=== PATIENT | male | born 1995 ===

== ENCOUNTER 2018-09-05 18:30 | Emergency (ER) | payer SELFPAY ==
[2018-09-05 18:53] VITALS: BMI 21.9
[2018-09-05 18:54] VITALS: BP 125/72; PULSE 72; RESP 18; TEMP 98.6; O2SAT 99
[2018-09-05] MEDS ORDERED: Hydrocortisone 2.5% Rectal Cream(30 gm) PR STA (19:08)
--- NOTE | 2018-09-05 19:12 | ED PDOC ---
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 States pain started after straining during a bowel movement. Notes intermittent history of constipation. Describes pain as burning during bowel movement. Denies bleeding, abdominal pain, fever, chills, discharge, any other complaint. Past Medical History - Provider Review Nursing Documentation Reviewed: Yes - Pulmonary Hx Asthma: Yes - Psychiatric Hx Substance Use: No Family/Social History - Physician Review Nursing Documentation Reviewed: Yes Family/Social History: Unknown Family HX Smoking Status: Never Smoked Hx Alcohol Use: Yes Frequency of alcohol use: Socially Hx Substance Use: No Allergies/Home Meds Allergies/Adverse Reactions: Allergies No Known Allergies Allergy (Verified 09/05/18 18:52) Review of Systems - Physician Review All systems were reviewed & negative as marked: Yes - Review of Systems Constitutional: Normal Eyes: Normal ENT: Normal Respiratory: Normal Cardiovascular: Normal Gastrointestinal: Other (Hemorrhoid) Genitourinary Male: Normal Musculoskeletal: Normal Skin: Normal Neurological: Normal Endocrine: Normal Hemo/Lymphatic: Normal Psychiatric: Normal Physical Exam Vital Signs Reviewed: Yes Vital Signs Temp Pulse Resp BP Pulse Ox 09/05/18 18:53 98.6 F 72 18 125/72 99 Temperature: Afebrile Blood Pressure: Normal Pulse: Regular Respiratory Rate: Normal Appearance: Positive for: Well-Appearing, Non-Toxic, Comfortable Pain Distress: None Mental Status: Positive for: Alert and Oriented X 3 - Systems Exam Head: Present: Atraumatic, Normocephalic Pupils: Present: PERRL Extroacular Muscles: Present: EOMI Conjunctiva: Present: Normal Mouth: Present: Moist Mucous Membranes Neck: Present: Normal Range of Motion Respiratory/Chest: Present: Clear to Auscultation, Good Air Exchange. No: Respiratory Distress, Accessory Muscle Use Cardiovascular: Present: Regular Rate and Rhythm, Normal S1, S2. No: Murmurs Abdomen: No: Tenderness, Distention, Peritoneal Signs Rectal: Present: Hemorrhoids (Small nonstrangulated/nonbleeding internal hemorrhoid noted at 9 oclock position.). No: Rectal Tenderness Back: Present: Normal Inspection Upper Extremity: Present: Normal Inspection. No: Cyanosis, Edema Lower Extremity: Present: Normal Inspection. No: Edema Neurological: Present: GCS=15, CN II-XII Intact, Speech Normal Skin: Present: Warm, Dry, Normal Color. No: Rashes Psychiatric: Present: Alert, Oriented x 3, Normal Insight, Normal Concentration Disposition/Present on Arrival - Present on Arrival Any Indicators Present on Arrival: No History of DVT/PE: No History of Uncontrolled Diabetes: No Urinary Catheter: No History of Decub. Ulcer: No History Surgical Site Infection Following: None - Disposition Have Diagnosis and Disposition been Completed?: Yes Diagnosis: Hemorrhoid Disposition: HOME/ ROUTINE Disposition Time: 19:25 Patient Plan: Discharge Condition: STABLE Discharge Instructions (ExitCare): Hemorrhoids (DC) Additional Instructions: Increase your fiber intake Do warm sitz baths Apply cream as directed Follow up with a Surgeon Prescriptions: Acetaminophen [Tylenol Extra Strength] 500 mg PO Q6 #20 tablet Hard Fat/Phenylephrine [place] [Anusol Suppository] 1 sup RC TID #100 sup Polyethylene Glycol 3350 [Miralax] 119 gm PO BID #1 powder Referrals: Bruce Reina MD [Staff Provider] - Follow up with primary [facility] [place] - Follow up with primary
== END 2018-09-05 19:40 | disposition home or self-care (01) ==
LOC: ED 18:30
DX: K64.8 Other hemorrhoids (principal)